=== PATIENT | female | born 1965 | race Caucasian/White ===

== ENCOUNTER 2017-09-21 09:48 | Emergency (ER) | payer BC ==
[~2017-09-21] VITALS: Ht 177.8 cm; Wt 115.0 kg
[2017-09-21 09:52] VITALS: Ht 177.8 cm; Wt 115.0 kg
[2017-09-21] MEDS ORDERED: TAPE50TA5 PO (10:09)
[2017-09-21] MEDS ORDERED: LEVO125T72 PO (10:09)
[2017-09-21] MEDS ORDERED: DIVA250T4 PO (10:09)
[2017-09-21] MEDS ORDERED: METO25TA56 PO (10:09)
[2017-09-21] MEDS ORDERED: DULO60CA44 PO (10:09)
[2017-09-21] MEDS ORDERED: ATOR10TA82 PO (10:09)
[2017-09-21] MEDS ORDERED: OXYC1TAB3 PO ×2 (10:09→11:51)
[2017-09-21] MEDS ORDERED: GABA-113 PO (10:09)
[2017-09-21] MEDS ORDERED: OXYCODONE HCL IR 5 MG TAB (IMMEDIATE RELEASE) PO STA (10:19)
--- NOTE | 2017-09-21 11:07 | DIAGNOSTIC IMAGING REPORT ---
R FOOT MIN 3 VIEWS ROUTINE CLINICAL HISTORY: 52 years-old Female presenting with eval for fx. TECHNIQUE: Frontal, oblique, and lateral views of the right foot were obtained. COMPARISON: None. FINDINGS: No acute fracture or malalignment. Enthesophytes noted at the inferior calcaneus and insertion of the Achilles tendon. No advanced degenerative change. No radiographic soft tissue abnormality. IMPRESSION: No acute osseous injury. Electronically signed by: Rafa Brownlee M.D. 09/21/2017 11:06 AM Dictated Date/Time: 09/21/2017 11:05 AM
--- NOTE | 2017-09-21 11:09 | DIAGNOSTIC IMAGING REPORT ---
R ANKLE MIN 3 VIEWS ROUTINE CLINICAL HISTORY: 52 years-old Female presenting with eval for fx. TECHNIQUE: Frontal, mortise, and lateral views of the right ankle were obtained. COMPARISON: None. FINDINGS: Ankle mortise intact. Small ossicle inferior to the lateral malleolus appears well-corticated, possibly old injury. Enthesophytes at the insertion of the Achilles tendon and origin of the plantar fascia. Mild degenerative change evidenced by osteophytosis at the ankle mortise. No acute fracture or malalignment. No advanced degenerative change. No radiographic soft tissue abnormality. IMPRESSION: No acute osseous injury. Electronically signed by: Rafa Brownlee M.D. 09/21/2017 11:08 AM Dictated Date/Time: 09/21/2017 11:06 AM
--- NOTE | 2017-09-21 11:10 | DIAGNOSTIC IMAGING REPORT ---
L ANKLE MIN 3 VIEWS ROUTINE CLINICAL HISTORY: 52 years-old Female presenting with eval for fx. TECHNIQUE: Frontal, mortise, and lateral views of the left ankle were obtained. COMPARISON: None. FINDINGS: Ankle mortise intact. Enthesophytes noted at the insertion of the Achilles tendon and origin of the plantar fascia. No acute fracture or malalignment. No advanced degenerative change. No radiographic soft tissue abnormality. IMPRESSION: No acute osseous injury. Electronically signed by: Rafa Brownlee M.D. 09/21/2017 11:09 AM Dictated Date/Time: 09/21/2017 11:08 AM
--- NOTE | 2017-09-21 11:11 | DIAGNOSTIC IMAGING REPORT ---
L FOOT MIN 3 VIEWS ROUTINE CLINICAL HISTORY: 52 years-old Female presenting with eval for fx, fall. TECHNIQUE: Frontal, oblique, and lateral views of the left foot were obtained. COMPARISON: None. FINDINGS: Enthesophyte noted at the insertion of the Achilles tendon and origin of the plantar fascia. Os peroneum noted. No acute fracture or malalignment. No advanced degenerative change. No radiographic soft tissue abnormality. IMPRESSION: No acute osseous injury. Electronically signed by: Rafa Brownlee M.D. 09/21/2017 11:10 AM Dictated Date/Time: 09/21/2017 11:09 AM
--- NOTE | 2017-09-21 11:17 | DIAGNOSTIC IMAGING REPORT ---
L KNEE 1 OR 2 VIEWS ROUTINE CLINICAL HISTORY: 52 years-old Female presenting with eval for fx. TECHNIQUE: Frontal and lateral views of the left knee were obtained. COMPARISON: None. FINDINGS: Osteopenia suggested. Osteophytosis in the lateral and patellofemoral compartments. Mild medial joint space loss. No acute fracture or malalignment. No radiographic soft tissue abnormality. IMPRESSION: 1. No acute osseous injury. 2. Mild tricompartmental degenerative change. Electronically signed by: Rafa Brownlee M.D. 09/21/2017 11:16 AM Dictated Date/Time: 09/21/2017 11:15 AM
--- NOTE | 2017-09-21 11:18 | DIAGNOSTIC IMAGING REPORT ---
L TIBIA/FIBULA 2 VIEWS ROUTINE CLINICAL HISTORY: 52 years-old Female presenting with eval for fx, fall last night. TECHNIQUE: Frontal and lateral views of the left lower leg were obtained. COMPARISON: None. FINDINGS: No acute fracture or malalignment. No advanced degenerative change. No radiographic soft tissue abnormality. IMPRESSION: No acute osseous injury. Electronically signed by: Rafa Brownlee M.D. 09/21/2017 11:16 AM Dictated Date/Time: 09/21/2017 11:16 AM
--- NOTE | 2017-09-21 11:19 | DIAGNOSTIC IMAGING REPORT ---
L HIP UNILATERAL 2 VIEWS CLINICAL HISTORY: 52 years-old Female presenting with eval for fx. TECHNIQUE: Frontal and frog-leg lateral views of the left hip were obtained. COMPARISON: None. FINDINGS: Trace joint congruent. No femoral neck fracture. Visualized portion of the bony pelvis intact. No malalignment. No advanced degenerative change. No radiographic soft tissue abnormality. IMPRESSION: No acute osseous injury. Electronically signed by: Rafa Brownlee M.D. 09/21/2017 11:17 AM Dictated Date/Time: 09/21/2017 11:17 AM
--- NOTE | 2017-09-21 11:20 | DIAGNOSTIC IMAGING REPORT ---
PELVIS 1 OR 2 VIEW ROUTINE CLINICAL HISTORY: 52 years-old Female presenting with eval for fx. TECHNIQUE: Single frontal view the pelvis was obtained. COMPARISON: None. FINDINGS: Sacroiliac joints, hip joints, pubic symphysis congruent. Transitional lumbosacral anatomy noted. No acute fracture or malalignment. No advanced degenerative change. No radiographic soft tissue abnormality. IMPRESSION: No acute osseous injury. Electronically signed by: Rafa Brownlee M.D. 09/21/2017 11:18 AM Dictated Date/Time: 09/21/2017 11:18 AM
--- NOTE | 2017-09-21 11:21 | DIAGNOSTIC IMAGING REPORT ---
R HAND MIN 3 VIEWS ROUTINE CLINICAL HISTORY: 52 years-old Female presenting with eval for fx, fall last night. TECHNIQUE: Frontal, oblique, and lateral views of the right hand were obtained. COMPARISON: None. FINDINGS: Stippled calcification in the distal radial metaphysis is partially visualized. No acute fracture or malalignment. No advanced degenerative change. No radiographic soft tissue abnormality. IMPRESSION: 1. No acute osseous injury. 2. Partially visualized stippled calcification in the distal radial metaphysis may represent a chondroid lesion. Electronically signed by: Rafa Brownlee M.D. 09/21/2017 11:20 AM Dictated Date/Time: 09/21/2017 11:19 AM
--- NOTE | 2017-09-21 11:38 | DIAGNOSTIC IMAGING REPORT ---
L-SPINE MIN 4 VIEWS ROUTINE CLINICAL HISTORY: 52 years-old Female presenting with eval for fx. TECHNIQUE: Frontal, bilateral oblique, lateral, and coned in lateral views of the lumbar spine were obtained. COMPARISON: None. FINDINGS: No significant scoliosis. Normal lumbar lordosis. Vertebral bodies maintain normal height and alignment. Transitional lumbosacral anatomy is evident. Vacuum disc phenomenon noted at the last 2 intervertebral disc spaces, presumably L4-5 and L5-S1. These also demonstrate mild intervertebral disc height loss. There is 4 to 5 mm of anterolisthesis of L5 on S1. Suspected osseous neural foraminal narrowing at L4-5 and L5-S1. No compression deformity to suggest fracture. IMPRESSION: 1. No radiographic evidence of acute osseous injury. 2. Grade 1 anterolisthesis of L5 on S1 suspected. 3. Degenerative changes in the lower lumbar spine with osseous neural foraminal narrowing of L4-5 and L5-S1. Electronically signed by: Rafa Brownlee M.D. 09/21/2017 11:36 AM Dictated Date/Time: 09/21/2017 11:32 AM
--- NOTE | 2017-09-21 11:39 | DIAGNOSTIC IMAGING REPORT ---
THORACIC SPINE 3 VIEWS ROUTINE CLINICAL HISTORY: 52 years-old Female presenting with eval for fx, fall last night. TECHNIQUE: 3 views of the thoracic spine were obtained. COMPARISON: None. FINDINGS: No significant scoliosis. Normal thoracic kyphosis. Upper cervical spine is poorly visualized due to overlapping ruptures. Allowing for this, vertebral bodies maintain normal height and alignment. Intervertebral disc spaces are preserved. Mild anterior osteophytosis noted at several levels. No gross evidence of a compression deformity or osseous neural foraminal narrowing. IMPRESSION: No radiographic evidence of acute osseous injury or advanced degenerative change. Electronically signed by: Rafa Brownlee M.D. 09/21/2017 11:38 AM Dictated Date/Time: 09/21/2017 11:37 AM
[2017-09-21 12:17] VITALS: BP 114/74; PULSE 58; TEMP 36.8; O2SAT 94
--- NOTE | 2017-09-21 16:20 | EMERGENCY ROOM VISIT NOTE ---
History Report prepared by Ben: Karin Kingston Under the Supervision of: Dr. Kirit Ramsey M.D. First contact with patient: 10:05 Chief Complaint: FALL Stated Complaint: FELL,PAIN IN BOTH FEET,LT KNEE History of Present Illness The patient is a 52 year old female who presents to the Emergency Room with complaints of moderate bilateral leg pain due to a fall last night. She reports she fell down 2 steps and fell on top of both of her legs. She also hurt her right hand. Movement is a worsening factor for her pain. Her pain is greater in her left knee than her right and but states they both hurt. She notes her back is sore and she has taken ibuprofen which slightly alleviated her pain. She denies any head or neck injury. Source of History: patient Onset: last night Position: leg (bilateral) Symptom Intensity: moderate Timing: constant Modifying Factors (Worsening): movement Modifying Factors (Relieving): ibuprofen Associated Symptoms: + headache, + back pain (soreness) Review of Systems See HPI for pertinent positives & negatives. A total of 10 systems reviewed and were otherwise negative. Past Medical & Surgical Medical Problems: (1) High blood pressure Family History Cancer Diabetes mellitus FHx: gallbladder disease Heart disease High blood pressure Social History Smoking Status: Never Smoker Smokeless Tobacco Use: Yes Alcohol Use: occasionally Marital Status: Occupation Status: unemployed Current/Historical Medications Scheduled Atorvastatin (Lipitor), 10 MG PO DAILY Divalproex Sodium (Depakote Delay Rel), 250 MG PO BID Duloxetine Hcl (Cymbalta), 60 MG PO DAILY Gabapentin (Neurontin), 1,200 MG PO BID Levothyroxine Sodium (Synthroid), 125 MCG PO DAILY Metoprolol Tartrate (Lopressor) (Lopressor), 25 MG PO BID Tapentadol Hcl (Nucynta), 50 MG PO BID Scheduled PRN Oxycodone Ir (Roxicodone Ir), 5 MG PO Q6H PRN for Pain Oxycodone Ir (Roxicodone Ir), 5 MG PO Q4H PRN for Pain Allergies Coded Allergies: No Known Allergies (Unverified , 09/21/17) Physical Exam Vital Signs Date Time Temp Pulse Resp B/P (MAP) Pulse Ox O2 Delivery O2 Flow Rate FiO2 09/21/17 12:17 36.8 58 18 114/74 94 09/21/17 11:41 58 18 114/74 94 09/21/17 09:52 36.8 75 20 141/81 98 Room Air Physical Exam Constitutional: Vital signs reviewed. Eyes: Pupils are equal round reactive to light. Conjunctiva are noninjected. ENT: Pharynx is clear without erythema or exudate. Mucous membranes are moist. Neck supple without meningeal signs. Respiratory: Clear to auscultation bilaterally. Breath sounds are equal bilaterally. Cardiovascular: Regular rate and rhythm. No rubs or gallops. GI: Soft, nondistended and nontender. Bowel sounds are present. Musculoskeletal: No midline tenderness to the cervical spine. Mild tenderness to the lumbar spine without step offs. Left hip and knee tenderness. Tenderness of the dorsal surface of the proximal foot with bruising and lateral malleolus. Tenderness to the right lateral malleolus and the dorsal surface with an abrasion. Normal distal pulses. Tenderness to the right 5th metacarpal without deformity. Integumentary: No cyanosis. Neurological: The patient is awake and alert. No focal deficits. Psychiatric: Normal affect. Medical Decision & Procedures ER Provider Diagnostic Interpretation: Radiology results as stated below per my review and the radiologist's interpretation: L TIBIA/FIBULA 2 VIEWS ROUTINE CLINICAL HISTORY: 52 years-old Female presenting with eval for fx, fall last night. TECHNIQUE: Frontal and lateral views of the left lower leg were obtained. COMPARISON: None. FINDINGS: No acute fracture or malalignment. No advanced degenerative change. No radiographic soft tissue abnormality. IMPRESSION: No acute osseous injury. Electronically signed by: Rafa Brownlee M.D. 09/21/2017 11:16 AM THORACIC SPINE 3 VIEWS ROUTINE CLINICAL HISTORY: 52 years-old Female presenting with eval for fx, fall last night. TECHNIQUE: 3 views of the thoracic spine were obtained. COMPARISON: None. FINDINGS: No significant scoliosis. Normal thoracic kyphosis. Upper cervical spine is poorly visualized due to overlapping ruptures. Allowing for this, vertebral bodies maintain normal height and alignment. Intervertebral disc spaces are preserved. Mild anterior osteophytosis noted at several levels. No gross evidence of a compression deformity or osseous neural foraminal narrowing. IMPRESSION: No radiographic evidence of acute osseous injury or advanced degenerative change. Electronically signed by: Rafa Brownlee M.D. 09/21/2017 11:38 AM PELVIS 1 OR 2 VIEW ROUTINE CLINICAL HISTORY: 52 years-old Female presenting with eval for fx. TECHNIQUE: Single frontal view the pelvis was obtained. COMPARISON: None. FINDINGS: Sacroiliac joints, hip joints, pubic symphysis congruent. Transitional lumbosacral anatomy noted. No acute fracture or malalignment. No advanced degenerative change. No radiographic soft tissue abnormality. IMPRESSION: No acute osseous injury. Electronically signed by: Rafa Brownlee M.D. 09/21/2017 11:18 AM L-SPINE MIN 4 VIEWS ROUTINE CLINICAL HISTORY: 52 years-old Female presenting with eval for fx. TECHNIQUE: Frontal, bilateral oblique, lateral, and coned in lateral views of the lumbar spine were obtained. COMPARISON: None. FINDINGS: No significant scoliosis. Normal lumbar lordosis. Vertebral bodies maintain normal height and alignment. Transitional lumbosacral anatomy is evident. Vacuum disc phenomenon noted at the last 2 intervertebral disc spaces, presumably L4-5 and L5-S1. These also demonstrate mild intervertebral disc height loss. There is 4 to 5 mm of anterolisthesis of L5 on S1. Suspected osseous neural foraminal narrowing at L4-5 and L5-S1. No compression deformity to suggest fracture. IMPRESSION: 1. No radiographic evidence of acute osseous injury. 2. Grade 1 anterolisthesis of L5 on S1 suspected. 3. Degenerative changes in the lower lumbar spine with osseous neural foraminal narrowing of L4-5 and L5-S1. Electronically signed by: Rafa Brownlee M.D. 09/21/2017 11:36 AM L KNEE 1 OR 2 VIEWS ROUTINE CLINICAL HISTORY: 52 years-old Female presenting with eval for fx. TECHNIQUE: Frontal and lateral views of the left knee were obtained. COMPARISON: None. FINDINGS: Osteopenia suggested. Osteophytosis in the lateral and patellofemoral compartments. Mild medial joint space loss. No acute fracture or malalignment. No radiographic soft tissue abnormality. IMPRESSION: 1. No acute osseous injury. 2. Mild tricompartmental degenerative change. Electronically signed by: Rafa Brownlee M.D. 09/21/2017 11:16 AM L HIP UNILATERAL 2 VIEWS CLINICAL HISTORY: 52 years-old Female presenting with eval for fx. TECHNIQUE: Frontal and frog-leg lateral views of the left hip were obtained. COMPARISON: None. FINDINGS: Trace joint congruent. No femoral neck fracture. Visualized portion of the bony pelvis intact. No malalignment. No advanced degenerative change. No radiographic soft tissue abnormality. IMPRESSION: No acute osseous injury. Electronically signed by: Rafa Brownlee M.D. 09/21/2017 11:17 AM R HAND MIN 3 VIEWS ROUTINE CLINICAL HISTORY: 52 years-old Female presenting with eval for fx, fall last night. TECHNIQUE: Frontal, oblique, and lateral views of the right hand were obtained. COMPARISON: None. FINDINGS: Stippled calcification in the distal radial metaphysis is partially visualized. No acute fracture or malalignment. No advanced degenerative change. No radiographic soft tissue abnormality. IMPRESSION: 1. No acute osseous injury. 2. Partially visualized stippled calcification in the distal radial metaphysis may represent a chondroid lesion. Electronically signed by: Rafa Brownlee M.D. 09/21/2017 11:20 AM R FOOT MIN 3 VIEWS ROUTINE CLINICAL HISTORY: 52 years-old Female presenting with eval for fx. TECHNIQUE: Frontal, oblique, and lateral views of the right foot were obtained. COMPARISON: None. FINDINGS: No acute fracture or malalignment. Enthesophytes noted at the inferior calcaneus and insertion of the Achilles tendon. No advanced degenerative change. No radiographic soft tissue abnormality. IMPRESSION: No acute osseous injury. Electronically signed by: Rafa Brownlee M.D. 09/21/2017 11:06 AM L FOOT MIN 3 VIEWS ROUTINE CLINICAL HISTORY: 52 years-old Female presenting with eval for fx, fall. TECHNIQUE: Frontal, oblique, and lateral views of the left foot were obtained. COMPARISON: None. FINDINGS: Enthesophyte noted at the insertion of the Achilles tendon and origin of the plantar fascia. Os peroneum noted. No acute fracture or malalignment. No advanced degenerative change. No radiographic soft tissue abnormality. IMPRESSION: No acute osseous injury. Electronically signed by: Rafa Brownlee M.D. 09/21/2017 11:10 AM R ANKLE MIN 3 VIEWS ROUTINE CLINICAL HISTORY: 52 years-old Female presenting with eval for fx. TECHNIQUE: Frontal, mortise, and lateral views of the right ankle were obtained. COMPARISON: None. FINDINGS: Ankle mortise intact. Small ossicle inferior to the lateral malleolus appears well-corticated, possibly old injury. Enthesophytes at the insertion of the Achilles tendon and origin of the plantar fascia. Mild degenerative change evidenced by osteophytosis at the ankle mortise. No acute fracture or malalignment. No advanced degenerative change. No radiographic soft tissue abnormality. IMPRESSION: No acute osseous injury. Electronically signed by: Rafa Brownlee M.D. 09/21/2017 11:08 AM L ANKLE MIN 3 VIEWS ROUTINE CLINICAL HISTORY: 52 years-old Female presenting with eval for fx. TECHNIQUE: Frontal, mortise, and lateral views of the left ankle were obtained. COMPARISON: None. FINDINGS: Ankle mortise intact. Enthesophytes noted at the insertion of the Achilles tendon and origin of the plantar fascia. No acute fracture or malalignment. No advanced degenerative change. No radiographic soft tissue abnormality. IMPRESSION: No acute osseous injury. Electronically signed by: Rafa Brownlee M.D. 09/21/2017 11:09 AM Medications Administered Medications (Trade) Dose Ordered Sig/Dev Route Start Time Stop Time Status Last Admin Dose Admin Oxycodone HCl (Roxicodone Immediate Rel Tab) 5 mg NOW STAT PO 09/21/17 10:19 09/21/17 10:22 DC 09/21/17 10:25 5 MG ED Course 1012: The patient was evaluated in room A9. A complete history and physical exam was performed. 1019: Ordered Oxycodone HCl 5 mg PO 1143: I talked to her about her test results. She is requesting some stronger pain medications to go home with. She will also get a walker to go home with. 1144: I PDMP'ed the patient. She received Nucynta on September 16, 2017 and 105 oxycodone on September 04, 2017. 1150: Upon reevaluation, the patient appeared to have improvement of her symptoms. I discussed rajan's findings with her. I also discussed that she is from out of town and she did not bring any of her medications with her. She verbalized agreement of the treatment plan. She was discharged home. Medical Decision This is a 52-year-old female presents with injuries after fall. Differential diagnosis includes contusion, sprain, fracture, strain, hematoma. I did perform a limited focused review of portions of the patient's old chart on the electronic medical record. The patient has had no prior visits to this hospital. I did evaluate the patient as noted above. The patient suffered a mechanical fall yesterday. She has pain mostly to her bilateral legs over the ankles and feet as well as the left knee. She also has some tenderness to her right hand. I did treat the patient with oxycodone for pain. I did order multiple x- rays. I did review the images myself as well as the radiology report as described above. The patient does not have any acute fractures or dislocations throughout the areas x-rayed. I did reassess the patient. She is feeling better. Patient is chronically on pain medication but states that she is from out of town and forgot to bring her pain medicines. She did request pain medication and was given a prescription for 8 oxycodone. She was discharged in good condition. [place] Drug Monitoring Program Search Results: patient reviewed within database Drug Monitoring Findings: She received Nucynta on September 16, 2017 and 105 oxycodone on September 04, 2017. Medication Reconcilliation Current Medication List: was personally reviewed by me Blood Pressure Screening Patient's blood pressure: Elevated blood pressure Blood pressure disposition: Referred to PCP Impression Primary Impression: Left leg injury Additional Impressions: Right leg injury Injury of right hand Low back pain Fall Scribe Attestation The scribe's documentation has been prepared under my direct and personally reviewed by me in its entirety. I confirm that the note above accurately reflects all work, treatment, procedures, and medical decision making performed by me. Departure Information Dispostion Home / Self-Care Prescriptions Oxycodone Ir (Roxicodone Ir) 5 Mg Tab 5 MG PO Q4H Y for Pain, #8 TAB Prov: Kirit Ramsey M.D. 09/21/17 Referrals No Doctor, Assigned (PCP) Forms HOME CARE DOCUMENTATION FORM, IMPORTANT VISIT INFORMATION Patient Instructions My [facility] Additional Instructions You have been examined and treated today on an emergency basis only. This is not a substitute for, or an effort to provide, complete comprehensive medical care. It is impossible to recognize and treat all injuries or illnesses in a single emergency department visit. It is therefore important that you follow up closely with your physician. Call as soon as possible for an appointment. Return for worsening symptoms or if you develop or any other concerning symptoms. Problem Qualifiers Primary Impression: Left leg injury Encounter type: initial encounter Qualified Codes: S89.92XA - Unspecified injury of left lower leg, initial encounter Additional Impressions: Right leg injury Encounter type: initial encounter Qualified Codes: S89.91XA - Unspecified injury of right lower leg, initial encounter Injury of right hand Encounter type: initial encounter Qualified Codes: S69.91XA - Unspecified injury of right wrist, hand and finger(s), initial encounter Low back pain Chronicity: acute Back pain laterality: midline Sciatica presence: without sciatica Qualified Codes: M54.5 - Low back pain Fall Encounter type: initial encounter Qualified Codes: W19.XXXA - Unspecified fall, initial encounter
== END 2017-09-21 12:10 | disposition home or self-care (01) ==
LOC: C.EDB 09:50 → C.EDA 12:10
DX: S89.92XA Unspecified injury of left lower leg, initial encounter (principal); S89.91XA Unspecified injury of right lower leg, initial encounter; S69.91XA Unspecified injury of right wrist, hand and finger(s), initial encounter; W10.9XXA Fall (on) (from) unspecified stairs and steps, initial encounter; M54.5 Low back pain; I10 Essential (primary) hypertension; Z79.899 Other long term (current) drug therapy